=== PATIENT | male | born 1990 | race Caucasian/White ===

== ENCOUNTER 2019-10-17 09:35 | Emergency (ER) | payer OTHER, SELFPAY ==
[2019-10-17] VITALS (7 sets, daily range): BP systolic 120–182; BP diastolic 64–99; PULSE 80–125; RESP 18–22; TEMP 36.9; O2SAT 98–100
--- NOTE | ~2019-10-17 | XR_ITS ---
EXAMINATION: XR chest 2V EXAM DATE: 10/17/2019 10:07 INDICATION: Midsternal chest pain. TECHNIQUE: Frontal and lateral projections of the chest obtained and reviewed. Comparison is made to prior examination from 02/07/2013. FINDINGS: The lungs are clear. There are no pleural effusions. The cardiomediastinal silhouette is within normal limits. There is no pneumothorax suspected. Right clavicular hardware. IMPRESSION: Normal chest x-ray exam. Reviewed, dictated and finalized at location A. IMPRESSION: Normal chest x-ray exam.
--- NOTE | 2019-10-17 09:37 | ECG_ITS ---
Measurements Intervals [place] Rate: 127 P: 73 MD: 166 QRS: 90 QRSD: 106 T: 35 QT: 288 QTc: 419 Interpretive Statements SINUS TACHYCARDIA ABNORMAL ECG Electronically Signed On 10-17-2019 13:23:59 CDT by Serge Barbosa D.O.
[2019-10-17 09:49] LABS: Basophils Absolute Auto 0.1 K/mm3 (0.0-0.1); Basophils Percent Auto 0.7 % (0.2-1.2); Eosinophils Absolute Auto 0.1 K/mm3 (0-0.3); Eosinophils Percent Auto 1.3 % (0-4.4); Hemoglobin 15.8 g/dL (14.0-18.0); Immature Granulocyte Absolute 0.04 K/mm3 (0.00-0.031); Immature Granulocyte Percent A 0.4 % (0-0.5); Lymphocytes Absolute Auto 1.33 K/mm3 (0.9-3.2); Lymphocytes Percent Auto 14.7 % (18.3-44.2); Mean Corpuscular HGB Conc 34.3 g/dl (32-36); Mean Corpuscular Hemoglobin 30.7 pg (26-34); Mean Corpuscular Volume 89.3 fl (80-100); Monocytes Absolute Auto 0.9 K/mm3 (0.1-0.6); Monocytes Percent Auto 9.7 % (2.6-8.5); Neutrophils Absolute Auto 6.6 K/mm3 (1.3-6.7); Neutrophils Percent Auto 73.2 % (45.5-73.1); Platelet Count Result 305 k/mm3 (150-375); Red Blood Count 5.15 M/mm3 (4.6-6.20); Red Cell Distribution Width 12.2 % (11.5-14.5)
[2019-10-17 10:00] LABS: Blood Urea Nitrogen 9 mg/dL (9-20); Calcium 9.5 mg/dL (8.4-10.2); Carbon Dioxide 25 mmol/L (22-30); Chloride 99 mmol/L (98-107); Estimated CRCL calculation 121 ml/min; Estimated Glomerular Filt Rate > 60; Glucose 124 mg/dL (75-110); Potassium 3.6 mmol/L (3.4-5.0); Sodium 137 mmol/L (137-145)
[2019-10-17 10:02] LABS: INR 0.9; Prothrombin Time 12.3 Seconds (11.1-14.7)
[2019-10-17 10:03] LABS: Partial Thromboplastin Time 23.6 SECONDS (22.3-36.8)
[2019-10-17 10:12] LABS: Troponin I < 0.012 ng/mL (0.000-0.034)
--- NOTE | 2019-10-17 10:28 | ED.CHESTPAIN ---
HPI - Chest Pain General Chief Complaint: Chest Pain <Lavon Lorenzo PA-C - Last Filed: 10/17/19 13:48> Stated Complaint: cp, lightheaded <MISSAEL Sanchez Last Filed: 10/17/19 13:48> Time Seen by Provider: 10/17/19 10:14 <MISSAEL Sanchez Last Filed: 10/17/19 13:48> Source: patient <MISSAEL Sanchez Last Filed: 10/17/19 13:48> Mode of arrival: ambulatory <MISSAEL Sanchez Last Filed: 10/17/19 13:48> Limitations: no limitations <MISSAEL Sanchez Last Filed: 10/17/19 13:48> History of Present Illness HPI narrative: Patient is a 28-year-old male who presents to emergency department for evaluation of anxiety nervousness and panic that began this morning noting over the last week he has been having episodes similar has been watching his blood pressures which she states have been elevated over the course of the last week denying any history of hypertension. Patient also notes longstanding history of anxiety and panic attacks but had been doing very well for the last 5 years until the last week. Patient denies any recent illness dyspnea or current chest pain, , patient notes when the episode intensified he had heaviness of the chest. Patient on arrival to emergency department is very anxious and nervous and tremulous. Patient has not taken anything for his symptoms. Patient has not been seen for this complaint. Patient also notes once the symptoms intensify he feels as though he is near syncopal. Patient notes that these episodes do mimic his prior anxiety and panic episodes in the past. Patient denies any suicidal or homicidal ideation or any history of suicidal or homicidal ideation or passive wish. <MISSAEL Sanchez Last Filed: 10/17/19 13:48> Related Data Allergies/Adverse Reactions: Allergies Allergy/AdvReac Type Severity Reaction Status Date / Time No Known Allergies Allergy Verified 10/17/19 09:56 <MISSAEL Sanchez Last Filed: 10/17/19 13:48> Review of Systems Review of Systems: All systems reviewed & are unremarkable except as noted in HPI and below <MISSAEL Sanchez Last Filed: 10/17/19 13:48> [facility] Past Medical History Medical History: Medical History Generalized anxiety disorder with panic attacks <Lavon Lorenzo PA-C - Last Filed: 10/17/19 13:48> Family History Family History: Family History (Updated 10/23/16 @ 15:37 by DOCTOR UNKNOWN) Other Family history of malignant neoplasm Hypertension <Lavon Lorenzo PA-C - Last Filed: 10/17/19 13:48> Social History Social History: Social History Smoking status: Light tobacco smoker Second hand tobacco smoke exposure: No Alcohol intake: current <Lavon Lorenzo PA-C - Last Filed: 10/17/19 13:48> Exam Narrative: Exam Narrative: GENERAL: Well-appearing, well-nourished, and in no acute distress. HEAD: Normocephalic, atraumatic. EYES: PERRLA and EOMI. ENT: Nares clear, no rhinorrhea or epistaxis. Mucous membranes moist. Oropharynx without tonsillar hypertrophy exudate or other lesions. NECK: Supple. No adenopathy or masses. CHEST: Clear to auscultation. No respiratory distress. No wheezes rales or rhonchi HEART: Tachycardic rate and regular rhythm. No murmur heard. Normal peripheral pulses. ABDOMEN: Soft, nontender, nondistended EXTREMITIES: Normal range of motion. No edema. SKIN: Warm, dry, no rash. NEURO: No focal deficits. Alert and oriented x3. PSYCH: Acutely anxious with normal affect <Lavon Lorenzo PA-C - Last Filed: 10/17/19 13:48> Course Course Emergency Course: Patient in the room aware of case findings treatment plan and diagnosis agreeing to follow-up as directed or to return if symptoms worsen or concerns <Lavon Lorenzo PA-C - Last Filed: 10/17/19 13:48> Vital
[2019-10-17 10:40] LABS: D Dimer 0.27 ug/mL (<0.48)
[2019-10-17] MEDS: ASPIRIN 81 MG CHEWABLE TABLET 324 MG PO (10:45)
[2019-10-17] MEDS: FAMOTIDINE 20 MG/2 ML VIAL IV PUSH (10:49)
[2019-10-17] MEDS: SODIUM CHLORIDE 0.9% IV 1,000 ML 999 ML IV CONT (10:50)
[2019-10-17 11:28] LABS: Amphetamine Screen Urine Negative (Negative); Barbiturate Screen Urine Negative (Negative); Benzodiazepines Screen Urine Negative (Negative); Cannabinoid Screen Urine Negative (Negative); Cocaine Screen Urine Negative (Negative); Methadone Screen Urine Negative (Negative); Opiate Screen Urine Negative (Negative); Phencyclidine Screen Urine Negative (Negative)
[2019-10-17 13:18] LABS: Troponin I < 0.012 ng/mL (0.000-0.034)
[2019-10-17 14:12] LABS: Add Urine Microscopic? YES; Appearance Urine Clear (Clear); Bacteria Urine Trace /hpf; Bilirubin Urine Negative (Negative); Blood Urine 1+ (Negative); Color Urine Yellow (Yellow); Glucose Urine UA Negative (Negative); Ketones Urine Trace mg/dL (Negative); Leukocyte Esterase Ur Negative LEU/UL (Negative); Mucus Urine Rare /lpf; Nitrate Urine Negative (Negative); Protein Urine 1+ mg/dL (Negative); RBC Urine 0-2 /hpf (0-2); Specific Grav Ur 1.014 (1.001-1.035); Urobilinogen Urine Negative mg/dL (<2.0); WBC Urine 0-3 /hpf
== END 2019-10-17 14:45 | disposition home or self-care (01) ==
PROVIDERS: Emergency Medicine Emergency Medical Services; Emergency Provider Emergency Medicine; PCP Family Medicine
DX: R07.9 Chest pain, unspecified (principal); F41.1 Generalized anxiety disorder; F17.200 Nicotine dependence, unspecified, uncomplicated
CPT/HCPCS: 36415; 71046; 80048; 80307; 81001; 84443; 84484; 85025; 85380; 85610; 85730; 93005; 96361; 96374; 96375; 96376; 99284; A9270; J2060; J7030

== ENCOUNTER 2020-07-03 14:12 | Outpatient (CLI) | payer OTHER, SELFPAY ==
--- NOTE | ~2020-07-03 | XR_ITS ---
XR forearm LT 2V DATE: 07/03/2020 14:28 INDICATION: Injury, pain TECHNIQUE: AP and lateral views COMPARISON: None FINDINGS: No fracture or dislocation, periosteal reaction or bone destruction. IMPRESSION: Negative Reviewed, dictated and finalized at location A. IMPRESSION: Negative
== END 2020-07-03 14:13 ==
PROVIDERS: Visit Provider Family Medicine
DX: S49.90XA Unspecified injury of shoulder and upper arm, unspecified arm, initial encounter (principal)
CPT/HCPCS: 73090

== ENCOUNTER 2024-03-04 09:17 | Outpatient (CLI) | payer BC, SELFPAY ==
[2024-03-04 09:57] LABS: Basophils Absolute Auto 0.1 K/mm3 (0.0-0.1); Basophils Percent Auto 0.7 % (0.2-1.2); Eosinophils Absolute Auto 0.1 K/mm3 (0-0.3); Eosinophils Percent Auto 0.7 % (0-4.4); Hematocrit 40.3 % (42.0-52.0); Hemoglobin 13.6 g/dL (14.0-18.0); Immature Granulocyte Absolute 0.05 K/mm3 (0.00-0.031); Immature Granulocyte Percent A 0.7 % (0-0.5); Lymphocytes Absolute Auto 0.88 K/mm3 (0.9-3.2); Lymphocytes Percent Auto 12.6 % (18.3-44.2); Mean Corpuscular HGB Conc 33.7 g/dl (32-36); Mean Corpuscular Hemoglobin 32.8 pg (26-34); Mean Corpuscular Volume 97.1 fl (80-100); Mean Platelet Volume 9.3 fl (7.4-10.4); Monocytes Absolute Auto 0.8 K/mm3 (0.1-0.6); Monocytes Percent Auto 10.8 % (2.6-8.5); Neutrophils Absolute Auto 5.2 K/mm3 (1.3-6.7); Neutrophils Percent Auto 74.5 % (45.5-73.1); Platelet Count Result 219 k/mm3 (150-375); Red Blood Count 4.15 M/mm3 (4.6-6.20); Red Cell Distribution Width 11.7 % (11.5-14.5)
[2024-03-04 10:37] LABS: LDL Cholesterol Direct 105 mg/dL
[2024-03-04 13:34] LABS: Alanine Aminotransferase 157 U/L (6-50); Alkaline Phosphatase 106 U/L (38-126); Anion Gap 12 mmol/L (4-12); Aspartate Amino Transferase 241 U/L (17-59); Bilirubin,Total 0.7 mg/dL (0.2-1.3); Blood Urea Nitrogen 8 mg/dL (9-20); Calcium 9.7 mg/dL (8.4-10.2); Carbon Dioxide 28 mmol/L (22-30); Chloride 97 mmol/L (98-107); Cholesterol 236 mg/dL (0-200); Estimated Glomerular Filt Rate > 60; Glucose 114 mg/dL (65-110); Potassium 3.9 mmol/L (3.4-5.0); Sodium 137 mmol/L (137-145); Triglycerides 54 mg/dL (<150)
[2024-03-04 14:13] LABS: Iron 119 ug/dL (49-181)
[2024-03-04 14:22] LABS: Percent Iron Saturation 29 % (20-50)
[2024-03-04 14:33] LABS: Free T4 Free Thyroxine 0.92 ng/mL (0.78-2.19)
[2024-03-04 14:42] LABS: Folic Acid 8.7 ng/mL (2.76->20)
[2024-03-04 17:00] LABS: Vitamin D 25 Hydroxy 39.7 ng/mL
[2024-03-04 17:07] LABS: HDL Direct 114 mg/dL
== END 2024-03-04 09:18 | disposition home or self-care (01) ==
PROVIDERS: PCP Family Medicine; Visit Provider Student in an Organized Health Care Education/Training Program
DX: F41.9 Anxiety disorder, unspecified (principal); I10 Essential (primary) hypertension; R25.1 Tremor, unspecified; R53.83 Other fatigue; E78.2 Mixed hyperlipidemia
CPT/HCPCS: 36415; 80053; 80061; 82306; 82607; 82728; 82746; 83540; 83550; 84439; 84443; 85025

== ENCOUNTER 2024-05-20 07:34 | Outpatient (CLI) | payer BC, SELFPAY ==
--- NOTE | ~2024-05-20 | US_ITS ---
US right upper quadrant INDICATION: Abnormal levels of serum enzymes. PROCEDURE: Realtime right upper abdominal ultrasound. COMPARISON: No prior studies for comparison. FINDINGS: The pancreas is normal without focal mass or pancreatic ductal dilation. Liver is enlarged measuring 18.7 cm. There is diffuse fatty infiltration of the liver. No discrete hepatic masses. Th ere is normal directional flow in the portal vein. The gallbladder is normal without stones, gallbladder wall thickening or pericholecystic fluid. Comm on bile duct measures 4 mm. No sonographic Nuñez's sign. IMPRESSION: 1: Hepatomegaly with diffuse fatty infiltration. Reviewed, dictated and finalized at location A. LINE MAINTENANCE SUPERVISOR
--- OUTSIDE RECORDS SUMMARY | 2024-05-20 07:38 | XMS_ITS | CONTINUITY OF CARE DOCUMENT ---
Author Name sheila sosa Address Unknown Organization [facility] Address [address] [address] [place] [address] Phone [phone] Care Team Providers Care Construction Lineman Name Role Phone Georgi Garcia MD Unavailable [phone] Georgi Garcia MD Unavailable [phone] INSURANCE PROVIDERS Payer name Policy type / Coverage type Geraldine red republican ID SELF PAY [employer] PPO [id number]
--- OUTSIDE RECORDS SUMMARY | 2024-05-20 07:39 | XMS_ITS | Referral Summary ---
Author Organization [facility] Address [address] [place] [address] Care Team Providers Care Mine Car Dispatcher Name Role Phone Judy Jacob MD Primary Care Provider [phone] Encounters Date Type Department Care Team Description 03/09/2024 - 03/10/2024 6:36 AM EPIC ANALYST Emergency [facility] Emergency Department [address] [place] [address] Discharge Disposition: ED Dismiss - Never Arrived from Last 3 Months Allergies No known active allergies Medications ALPRAZolam (XANAX) 0.5 mg tablet Take by mouth 3 (three) times a day as needed NEEDED 08/04/2020 Active venlafaxine XR (EFFEXOR-XR) 75 mg 24 hr capsule Take 75 mg by mouth daily 02/02/2021 Active metoprolol XL (TOPROL-XL) 50 mg extended release tablet 03/21/2021 Acti ve Active Problems Problem Noted Date Diagnosed Date Hypertension 03/09/2024 Assessment & Plan (03/09/2024 12:05 PM EPIC ANALYST): Takes metop 50mg XL at home -restart as able -goal normotension Leg laceration 03/09/2024 Assessment & Plan (03/09/2024 12:07 PM EPIC ANALYST): Patient at a construction site and backed into a concrete saw. 11 cm laceration with pulsatile bleeding. Presented to [facility]. Bleeding managed with pressure dressing and transferred to [facility] De Quervain's disease (radial styloid tenosynovi tis) 02/21/2021 Overview (02/21/2021): Added automatically from request for surgery [id number] Social History Tobacco Use Types Packs/Day Years Used Date Smoking Tobacco: Former Cigarettes Q uit: 11/19/2017 Smokeless Tobacco: Never AUDIT-C Answer Date Recorded Q1: How often do you have a drink containing alc ohol? 2-3 times a week 02/28/2021 Q2: How many drinks containi ng alcohol do you have on a typical day when you are drinking? 3 or 4 02/28/2021 Q3: How often do you have si x or more drinks on one occasion? Less than monthly 02/28/2021 Sex and Gender Information Value Date Recorded Sex Assigned at Not on file Legal Sex Male 2:23 PM EPIC ANALYST Gender Identity Not on file Sexual Orientation Not on file Last Filed Vital Signs Vital Sign Reading Time Taken Comments Blood Pressure 145/85 03/08/2021 12:25 PM EPIC ANALYST Pulse 90 03/08/2021 12:25 PM EPIC ANALYST Temperature 36.7 ??C (98 ??F) 03/08/2021 12:25 PM EPIC ANALYST Respiratory Rate 16 03/08/2021 12:25 PM EPIC ANALYST Oxygen Saturation 96% 03/08/2021 12:25 PM EPIC ANALYST Inhaled Oxygen Concentration - - Weight 88 kg (194 lb 1.6 oz) 03/08/2021 9:51 AM EPIC ANALYST Height 177.8 cm (5' 10 ) 03/08/2021 9:51 AM EPIC ANALYST Body Mass Index 27.85 03/08/2021 9:51 AM EPIC ANALYST Plan of Treatment [place] [address] [facility] [employer] Address: [facility] [id number] [place] [address] [employer] Address: [facility] [id number] [place] [address] Care Teams Mine Car Dispatcher Relationship Specialty Start Date End Date Judy Jacob MD PCP - General 04/13/17
--- OUTSIDE RECORDS SUMMARY | 2024-05-20 07:39 | XMS_ITS | Patient Health Summary ---
Author Organization [facility] Address [address] [place] [address] Care Team Providers Care Deadener Name Role Phone Judy Jacob MD Primary Care Provider [phone] Note from [facility],non-owned Affiliates and Associated Physician Practices is amultiple site organization consisting of ambulatory clinics and hospital sitesin [place], [place], [place] and [place]. This disclosure is being madepursuant to the Care Everywhere program and may not contain all information available regarding this patient. Last updated 18.[facility] Active Problems Problem Noted Date Diagnosed Date Fracture of other specified skull and facial bones, unspecified side, subsequent encounter for fracture with routine healing 09/08/2015 Social History Tobacco Use Types Packs/Day Years Used Date Smoking Tobacco: Every Day Cigarettes Alcohol Use Standard Drinks/Week Comments Yes 0 (1 standard drink = 0.6 oz pur e alcohol) Sex and Gender Information Value Date Recorded Sex Assigned at Not on file Gender Identity Not on file Sexual Orientation Not on file Last Filed Vital Signs Vital Sign Reading Time Taken Comments Blood Pressure 114/64 07/02/2015 10:30 AM CDT Pulse 103 07/02/2015 10:29 AM CDT Temperature 36.6 ??C (97.8 ??F) 07/02/2015 7:27 AM CD T Respiratory Rate 15 07/02/2015 7:27 AM CDT Oxygen Saturation 100% 07/02/2015 10:29 AM CDT Inhaled Oxygen Concentration - - Weight - - Height - - Body Mass Index - - Procedures * BASIC METABOLIC PANEL (CALCIUM TOTAL)(Performed 07/02/2015) * PTT [facility](Performed 07/02/2015) * PT-INR [facility](Performed 07/02/2015) * CBC W AUTO DIFFERENTIAL(Performed 07/02/2015) * CBC W AUTO DIFFERENTIAL(Performed 07/02/2015) Results * PTT [facility] (07/02/2015 7:50 AM CDT) APTT 23.6 23.0 - 38.4 Seconds [facility] Comment:Suggested therapeuti c range for full dose I.V. heparin therapy for venous thromboembolism is 66.0-91.0 seconds. Blood specimen (specimen) BLOOD SPECIMEN / Unknown 07/02/2015 7:50 AM CDT 07/02/2015 7:55 AM CDT Narrative [facility] - 07/02/2015 8:08 AM CDT Is patient on Heparin, Argatroban or Dabigatran?->N Jason Carrillo MD LAB - COAGULATION OR DERABLES Performing Organization Address [facility] Co de Phone Number [address] [phone] * (ABNORMAL) PT-INR U (07/02/2015 7:50 AM CDT) PT 12.0(L) 12.1 - 14.8 Seconds [facility] INR 0.9 See Comment [facility] Comment: Suggested therapeutic range for low-intensity coumadin therapy for venous thromboembolism prophylaxis is an INR of 2.0-3.0. ??For high risk patients (Mitral Valve Prosthesis, Atrial Fibrillation, history of TIA/stroke), suggested prophylactic therapeutic range is an INR of 2.5-3.5. Blood specimen (specimen) BLOOD SPECIMEN / Unknown 07/02/2015 7:50 AM CDT 07/02/2015 7:55 AM CDT Narrative [facility] - 07/02/2015 8:07 AM CDT Is patient on Heparin, Argatroban or Dabigatran?->N Jason Carrillo MD LAB - COAGULATION OR DERABLES Performing Organization Address [facility] Co de Phone Number [address] [phone] * (ABNORMAL) CBC W AUTO DIFFERENTIAL (07/02/2015 7:50 AM CDT) Only the most recent of2 resultswithin the time period is included. WBC 14.4(H) 3.5 - 10.5 10? 3 /uL [facility] RBC 4.71 4.30 - 5.70 10? 6 /uL [facility] Hemoglobin 14.1 13.5 - 17.5 g/dL [facility] Hematocrit 40.8 39.0 - 50.0 % [facility] MCV 86.6 81.0 - 97.0 fL [facility] MCH 29.9 28.0 - 34.0 pg [facility] MCHC 34.6 32.0 - 36.0 g/dL [facility] Platelet Count 260 150 - 400 10? 3 /uL [facility] RDW-SD 39.2 36.0 - 50.0 fL [facility] RDW-CV 12.2 11.2 - 14.8 % [facility] MPV 9.8 9.3 - 12.8 fL [facility] nRBC Absolute 0.00 0 10? 3 /uL [facility] nRBC Auto 0.0 0 /100 WBC [facility] Neutrophils % 78.7(H) 35.0 - 70.0 % [facility] Lymphocytes % 13.5(L) 19.7 - 55.1 % [facility] Monocytes % 7.6 3.0 - 15.0 % [facility] Eosinophils % 0.1 0.0 - 6.0 % [facility] Basophil % 0.1 0.0 - 1.5 % [facility] Neutrophils Absolute 11.4(H) 1.6 - 7.0 10? 3 /uL [facility] Lymphocyte Absolute 1.9 0.8 - 2.9 10? 3 /uL [facility] Monocytes Absolute 1.09(H) 0.14 - 0.66 10? 3 /uL [facility] Eosinophils Absolute 0.02 0.00 - 0.22 10? 3 /uL [facility] Basophils Absolute 0.02 0.00 - 0.06 10? 3 /uL [facility] Immature Granulocytes % 0.3 0.0 - 1.0 % [facility] Blood specimen (specimen) BLOOD SPECIMEN / Unknown 07/02/2015 7:50 AM CDT 07/02/2015 7:55 AM CDT Jason Carrillo MD LAB - HEMATOLOGY ORD ALEXIBLES [facility] [address] [phone] * BASIC METABOLIC PANEL (CALCIUM TOTAL) (07/02/2015 7:50 AM CDT) BUN 13 7 - 26 mg/dL [facility] Creatinine 0.7 0.6 - 1.2 mg/dL [facility] Sodium 140 136 - 145 mmol/L [facility] Potassium 4.0 3.5 - 4.5 mmol/L [facility] Chloride 105 98 - 107 mmol/L [facility] CO2 25 22 - 29 mmol/L [facility] Glucose 114 70 - 115 mg/dL [facility] Calcium 8.9 8.4 - 10.2 mg/dL [facility] Anion Gap 14 8 - 18 [facility] BUN/Creatinine Ratio 19 7 - 23 [facility] Osmolality Calculated 276 270 - 300 mOsm/kg [facility] eGFR >60 >60 mL/min/1.7 3 m2 [facility] Blood specimen (specimen) BLOOD SPECIMEN / Unknown 07/02/2015 7:50 AM CDT 07/02/2015 7:55 AM CDT Jason Carrillo MD LAB - CHEMISTRY KAREEM FREEMAN Performing Organization Address City/[facility]/ZIP Co de Phone Number [address] [phone] Care Teams Deadener Relationship Specialty Start Date End Date Judy Jacob MD [address] [place] [address] PCP - General 07/04/15
--- OUTSIDE RECORDS SUMMARY | 2024-05-20 07:39 | XMS_ITS | Data Portability ---
Author Organization [place] [facility] [email or web address], Main Office Address [address] [place] [address] Care Team Providers Care Hotel Sales Manager Name Role Phone KUSHAL HORN Airplane Charter Clerk [phone] Assessment Encounter Date Assessment Date Assessment LastModified by Organization Details LastModified Time 03/22/2024 03/22/2024 33-year-old patient presents today for 1st postop follow-up after right leg I and D and wound closure on 03/09/[address] Valadez. He rates his pain 5/10. He still has has a couple hydrocodone left and is also been taking the muscle relaxant and the antibiotic. He has 2 more days of the antibiotic. He denies any issues with the incision. 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 Review of systems per patient questionnaire Physical exam: Dressing was removed. Incision is clean dry and intact without signs and symptoms of infection. Sutures removed, antibiotic ointment and dressing placed. Tenderness with palpitation around incision site. Able to flex and extend ankle with pain. Slightly antalgic gait. Sensation intact throughout. We discussed incisional care and when to call the office if there are changes. We will also order physical therapy to help with his gait and muscle pain. For pain we recommend alternating Tylenol and ibuprofen as needed. If he is still experiencing pain we can order meloxicam. For work we will keep him light duty, no heavy lifting, pushing, pulling, squatting. We will write for him to start back at work on Friday of next week to ensure incision is well healed. We will see him back in 3 weeks to check his progress. Not available 03/22/2024 12:11:48 03/26/2024 03/26/2024 33-year-old patient presents today for postop follow-up after right leg I and D and wound closure on 03/09/[address] Valadez. He was concerned for infection so returned today for recheck. He has been taking keflex and finished the course on Friday. He states there has been drainage on the dressing and the leg began to swell and become numb. The swelling and numbness has resolved. He is taking tylenol and ibuprofen as needed. Physical exam: Dressing was removed. Incision is clean dry and intact. Redness around incision but it is unchanged from his appointment on Friday. Tenderness with palpitation around incision site. No drainage expressed with pressure. No edema. Sensation intact throughout. We will have him continue to monitor the incision. If any changes occur like purulent drainage, opening of the incision, increased pain/swelling/re dness, we instructed him to call the office and we will see him back. Otherwise we will see him back in 2 weeks. For swelling he can ice and elevate. He can continue NSAIDs and tylenol as needed. Not available 03/26/2024 10:54:53 04/09/2024 04/09/2024 33-year-old patient presents today for postop follow-up after right leg I and D and wound closure on 03/09/[address] Valadez. He states he has been doing well, 2/10 pain. He is taking tylenol and ibuprofen as needed. it took a while for physical therapy to be approved so he had his 1st session this Friday. He states it went well but he is still having tenderness over the incision and tightness around the leg. States that the top portion of the incision opened a bit but it has since closed and has minimal drainage. Physical exam: Dressing was removed. Incision is clean dry and intact. Redness around incision but improving. Tenderness with palpitation around incision site. No drainage expressed with pressure. No edema. Sensation intact throughout. We will have him continue to monitor the incision. If any changes occur like purulent drainage, opening of the incision, increased pain/swelling/re dness, we instructed him to call the office and we will see him back.He can continue with dressings and neosporn. We will see him back in 2-3 weeks. For swelling he can ice and elevate. He can continue NSAIDs and tylenol as needed. We will continue with same work restrictions of light duty, no heavy lifting, pushing, pulling, squatting Not available 04/09/2024 11:37:34 04/28/2024 04/28/2024 33-year-old patient presents today for postop follow-up after right leg I and D and wound closure on 03/09/[address] Valadez. He states he has been doing well, 2/10 pain. He is taking tylenol and ibuprofen as needed. He has been attending physical therapy. They have been working on strength and gait training. He states that the foot has started to turn down attendant when he steps and he still has a limp, which is causing his hip and back to hurt. He feels the calf is still weak. Physical exam: Antalgic gait. Incision is clean dry and intact, still some scabbing not completely healed. Minimal redness around incision. Tenderness with palpitation around incision site. No drainage expressed with pressure. Edema around ankle. Sensation intact throughout. We will have him continue to monitor the incision. If any changes occur like purulent drainage, opening of the incision, increased pain/swelling/re dness, we instructed him to call the office and we will see him back. He can continue with dressings and neosporn as needed. We would like him to continue with PT to increase strength and get back to a normal gait. We will see him back in 4 weeks. For swelling he can ice and elevate. He can continue NSAIDs and tylenol as needed. We will continue with same work restrictions of light duty, no heavy lifting, pushing, pulling, squatting. Not available 04/28/2024 10:04:04 Plan of Treatment Reminders Order Date Submit Date Provider Last Modified By Organization Details Last Modified Time Details Appointments Any 5 2024 08:30A Nakul Valadez MD Not available Not available Not available Lab None recorded. Referral physical therapist referral - Please contact pt to schedule apt. Thanks 2023 024 [facility] [place] [facility], [address], [place], [address], 04/05/2024 11:17:45 Procedures None recorded. Surgeries None recorded. Imaging None recorded. Medication Orders None recorded. Patient TargetsNo targets recorded. Patient InstructionsNo instructions recorded. Reason for Referral Physical Therapist Referral for Pain in right lower limb R leg Please contact pt to schedule apt. Thanks Referring Physician: Isaura Carroll, Orthopedic Surgery, Encounter Date: 03/22/2024 Problems Name Problem SNOMED Code Status Onset Date Resolution Date Notes Provider Name and Address Organization Details Recorded Time Laceration of lower leg 985646689 Active 024 Ja Valadez MD [address] [facility], [facility] [address], [place], [address], [facility] [employer] [facility] 4 10:38:30 Pain in right lower limb 706856514 Active 024 Kasey Fall , ATC L null, [place] [facility] [employer] 4 12:01:38 Laceration of lower leg 160418545 Active 025 Sol Rico RABBIT FANCIER null, [place] [facility] [employer] 5 09:40:01 Problem Notes None recorded. Medical Equipment None Reported. Allergies No known drug allergies Medications Name Sig Start Date Stop Date Status Note LastModified by Organization Details LastModified Time cyclobenzap rine 10 mg tablet TAKE 1 TABLET BY MOUTH THREE TIMES DAILY NEEDED active Not Available Not Available No t Available acetaminoph en 325 mg tablet 03/22 completed Not Available Not Available Not Available venlafaxine ER 75 mg capsule,ext ended release 24 hr TAKE 3 CAPSULES BY MOUTH DAILY active Not Available Not Available No t Available hydrocodone 5 mg-acetamin ophen 325 mg tablet TAKE 1 TABLET BY MOUTH EVERY 6 HOURS active Not Available Not Available No t Available meloxicam 15 mg tablet TAKE 1 TABLET BY MOUTH EVERY DAY active Not Available Not Available No t Available lisinopril 20 mg tablet TAKE 1 TABLET BY MOUTH DAILY active Not Available Not Available No t Available metoprolol succinate ER 100 mg tablet,exte nded release 24 hr TAKE 1 TABLET BY MOUTH DAILY active Not Available Not Available No t Available venlafaxine ER 150 mg capsule,ext ended release 24 hr TAKE 1 CAPSULE BY MOUTH DAILY active Not Available Not Available No t Available oxycodone-a cetaminophe n 5 mg-325 mg tablet active Not Available Not Available No t Available alprazolam 0.5 mg tablet TAKE 1 TABLET BY MOUTH THREE TIMES DAILY NEEDED FOR ANXIETY active Not Available Not Available No t Available cephalexin 500 mg capsule TAKE 1 CAPSULE BY MOUTH TWICE DAILY 04/27 completed Not Available Not Available Not Available lisinopril 10 mg tablet TAKE 1 TABLET BY MOUTH DAILY active Not Available Not Available No t Available lisinopril 40 mg tablet active Not Available Not Available Not Available Vitals Date Recorded Body height Body mass index (BMI) Body weight Provider Name and Address Organization Details Last Updated DateTime 03/22/2024 177.8 cm 27.3 kg/m2 42980.55 g Maude Goldsmith [facility] [employer] [facility] 03/22/2024 11:41:14 Date Recorded Body height Body mass index (BMI) Body weight Provider Name and Address Organization Details Last Updated DateTime 03/26/2024 177.8 cm 27.3 kg/m2 54197.55 g Sol Rico [facility] [employer] [facility] 03/26/2024 10:06:16 Date Recorded Body height Provider Name an d Address Organization Details Last Updated DateTime 04/09/2024 177.8 cm Maude Goldsmith [facility] [employer] [facility] 04/09/2024 10:30:17 Date Recorded Body height Body mass index (BMI) Body weight Provider Name and Address Organization Details Last Updated DateTime 04/28/2024 177.8 cm 27.3 kg/m2 57042.55 g Sol Rico RABBIT [facility] [employer] [facility] 04/28/2024 09:39:17 Social History Question Answer Notes LastModified by Organizat ion Details LastModified Time What Is Your Level Of Alcohol Consumption? Moderate [email or web address] Information not available 03/22/2024 Do You Or Have You Ever Used E-cigarettes Or Vape? Current User Of Electronic Cigarettes [email or web address] Information not available 03/22/2024 What Was The Date Of Your Most Recent Tobacco Screening? 03/22/2024 [email or web address] Information not available 03/22/2024 Do You Or Have You Ever Used Any Other Forms Of Tobacco Or Nicotine? Yes [email or web address] Information not available 03/22/2024 Sex: Unknown Functional Status None recorded. Mental Status None recorded. Family History Relationship Description Onset Age of this Age Resolved Age Notes LastModified by Organization Details LastModified Time Father Hypertensive disorder [email or web address] Not available 2023 11:42:26 Medical History No medical history recorded. Past Encounters Encounter ID Performer Location Encounter Start Date Encounter Closed Date Diagnosis/Indication Diagnosis SNOMED-CT Code Diagnosis ICD10 Code Diagnosis Note [id number] Isaura Carroll, HAIR CLIPPER POWER [facility] [address] [facility] [place] [address] 03/22/2024 11:25:40 03/22/2024 12:07:17 Pain in right lower limb 889135142 M79.298 [id number] Isaura Carroll, HAIR CLIPPER POWER [facility] [place] [address] [place] [address] 03/26/2024 10:04:45 03/26/2024 10:17:11 Laceration of lower leg 913416675 S81.819A [id number] Isaura Carroll, HAIR CLIPPER POWER [facility] [place] [address] [place] [address] 04/09/2024 10:29:28 04/09/2024 10:54:19 Laceration of lower leg 218688967 S81.819A Pain in ri ght lower limb 360724143 M79.547 [id number] Isaura Carroll, HAIR CLIPPER POWER [facility] [address] [place] [address] 04/28/2024 09:36:39 04/28/2024 10:09:23 Laceration of lower leg 148270479 S81.819D Pain in ri ght lower limb 190035132 M79.604 Health Concerns Section Related Observation LastModified by Organization Detai ls LastModified Time None Recorded Concern Status LastModified by Organization Details LastModified Time None Recorded Advance Directives Directive None Recorded Payers Encounter Date Sequence Insurance Name Policy Number Policy Vicente Covered Member ID Vicente Member ID Guarantor Name 03/22/2024 1 [place] [id number] Amando Green [id number] Amando Peter 03/26/2024 TRAVELERS [id number] [facility] 04/09/2024 TRAVELERS [id number] [facility] 04/28/2024 TRAVELERS [id number] [facility] Construction Amando Green
--- OUTSIDE RECORDS SUMMARY | 2024-05-20 07:39 | XMS_ITS | Clinical Summary ---
Author Organization [facility] Address [address] [place] [address] Care Team Providers Care Shipping And Receiving Clerk Name Role Phone Judy Jacob MD Primary Care Provider [phone] Source Comments [facility],non-owned Affiliates and Associated Physician Practices is amultiple site organization consisting of ambulatory clinics and hospital sitesin [place], [place], [place] and [place]. This disclosure is being madepursuant to the Care Everywhere program and may not contain all information available regarding this patient. Last updated 18.[facility] Active Problems Problem Noted Date Diagnosed Date Fracture of other specified skull and facial bones, unspecified side, subsequent encounter for fracture with routine healing 09/08/2015 Family History Medical History Relation Name Comments None Known Father None Known Mother Relation Name Status Comments Father Mother Social History Tobacco Use Types Packs/Day Years [...] - - Body Mass Index - - Plan of Treatment Health Maintenance Due Date Last Done Comments HIV SCREENING 11/28/2003 HEPATITIS C SCREENING 11/23/2006 DTAP/TDAP/TD VACCINES (1 - Tdap) 11/28/2007 HEPATITIS B VACCINE (1 of 3 - 19+ 3-dose series) 11/28/2007 PNEUMOCOCCAL VACCINE (1 of 2 - PCV) 11/28/2007 COVID-19 VACCINE (1 - 2023-2 5 season) 2023 INFLUENZA VACCINE (#1) 2023 DEPRESSION SCREENING 04/21/2024 ZOSTER VACCINE (1 of 2) 2038 HIB VACCINE Aged Out No longer eligi ble based on patient's age to complete this topic HPV VACCINE Aged Out No longer eligi ble based on patient's age to complete this topic MENINGOCOCCAL (Group B) VACCINE Aged Out No longer eligible based on patient's age to complete this topic MENINGOCOCCAL VACCINE Aged Out No john pippa eligible based on patient's age to complete this topic Care Teams Shipping And Receiving Clerk Relationship Specialty Start Date End Date Judy Jacob MD [address] [place] [address] PCP - General 07/04/15
--- OUTSIDE RECORDS SUMMARY | 2024-05-20 07:39 | XMS_ITS | Clinical Summary ---
Author Organization [facility] Address [address] [place] [address] Care Team Providers Care Field Service Consultant Name Role Phone Judy Jacob MD Primary Care Provider [phone] Allergies No known active allergies Medications ALPRAZolam [...] 03/09/2024 Assessment & Plan (03/09/2024 12:05 PM DRAFTER CIVIL (CAD)): Takes metop 50mg XL at home -restart as able -goal normotension Leg laceration 03/09/2024 Assessment & Plan (03/09/2024 12:07 PM DRAFTER CIVIL (CAD)): Patient at a construction site and backed into a concrete saw. 11 cm laceration with pulsatile bleeding. Presented to [facility]. Bleeding managed with pressure dressing and transferred to [facility] De Quervain's disease (radial styloid tenosynovi tis) 02/21/2021 Overview (02/21/2021): Added automatically from request for surgery [id number] Encounters Date Type Department Care Team Description 03/09/2024 - 03/10/2024 6:36 AM DRAFTER CIVIL (CAD) Emergency [facility] Emergency Department [address] [place] [address] Discharge Disposition: ED Dismiss - Never Arrived from Last 3 Months Surgical History Surgery Date Site/Laterality Comments SHOULDER SURGERY with hardware NOSE SURGERY PILONIDAL CYSTECTOMY x3 WISDOM TOOTH EXTRACTION 04/21/2003 - 04/20/2004 DE QUERVAIN'S RELEASE Left Medical History Medical History Date Comments Anxiety GERD (gastroesophageal reflux disease) Anxiety Family History Medical History Relation Name Comments Gout Father Relation Name Status Comments Father Social History Tobacco Use Types Packs/Day Years [...] on file Legal Sex Male 2:23 PM DRAFTER CIVIL (CAD) Gender Identity Not on file Sexual Orientation Not on file Obstetrics History Last Filed Vital Signs Vital Sign Reading Time Taken Comments Blood Pressure 145/85 03/08/2021 12:25 PM DRAFTER CIVIL (CAD) Pulse 90 03/08/2021 12:25 PM DRAFTER CIVIL (CAD) Temperature 36.7 ??C (98 ??F) 03/08/2021 12:25 PM DRAFTER CIVIL (CAD) Respiratory Rate 16 03/08/2021 12:25 PM DRAFTER CIVIL (CAD) Oxygen Saturation 96% 03/08/2021 12:25 PM DRAFTER CIVIL (CAD) Inhaled Oxygen Concentration - - Weight 88 kg (194 lb 1.6 oz) 03/08/2021 9:51 AM DRAFTER CIVIL (CAD) Height 177.8 cm (5' 10 ) 03/08/2021 9:51 AM DRAFTER CIVIL (CAD) Body Mass Index 27.85 03/08/2021 9:51 AM DRAFTER CIVIL (CAD) Plan of Treatment Not on file Insurance [employer] Address: [facility] [address] [place] [address] [employer] Address: [facility] [address] [place] [address] Care Teams Field Service Consultant Relationship Specialty Start Date End Date Judy Jacob MD PCP - General 04/13/17
--- OUTSIDE RECORDS SUMMARY | 2024-05-20 07:39 | XMS_ITS | Referral Summary ---
Author Organization [facility] Address [address] [place] [address] Care Team Providers Care Burr Grinder Name Role Phone Judy Jacob MD Primary Care Provider [phone] Source Comments [facility],non-owned Affiliates and Associated Physician Practices is amultiple site organization consisting of ambulatory clinics and hospital sitesin [place], [place], [place] and [place]. This disclosure is being madepursuant to the Care Everywhere program and may not contain all information available regarding this patient. Last updated 18.[facility] Active Problems Problem Noted Date Diagnosed Date [...] Mass Index - - Plan of Treatment Not on file Care Teams Burr Grinder Relationship Specialty Start Date End Date Judy Jacob MD [address] [place] [address] PCP - General 07/04/15
== END 2024-05-20 07:35 | disposition home or self-care (01) ==
PROVIDERS: PCP Family Medicine; Visit Provider Student in an Organized Health Care Education/Training Program
DX: R74.8 Abnormal levels of other serum enzymes (principal); K76.0 Fatty (change of) liver, not elsewhere classified
CPT/HCPCS: 76705

== ENCOUNTER 2024-12-17 14:06 | Emergency (ER) | payer BC, SELFPAY ==
[2024-12-17] VITALS (21 sets, daily range): BP systolic 131–152; BP diastolic 71–94; PULSE 92–126; RESP 13–31; TEMP 36.3–36.9; O2SAT 99–100
--- NOTE | ~2024-12-17 | CT_ITS ---
EXAMINATION: CTA BRAIN/CAROTID DATE: 12/17/2024 17:09 INDICATION: Altered mental status TECHNIQUE: Computed tomographic angiography (CTA) of the head and neck was performed with 100 mL Omnipaque-350 intravenous contrast. Multiplanar reconstructions and maximum intensity projection 3D-reconstructions of the carotid arteries and of the intracranial arteries were created by the technologist on a separate workstation. Precontrast CT of the head was also obtained. Automated exposure control and iterative reconstruction technique were employed.The dose-length product was 1767.41 mGy-cm. COMPARISON: 07/02/2015 FINDINGS: Head: No acute intracranial hemorrhage, acute infarction or abnormal extra axial fluid collection. Ventricles are normal and symmetric. No mass/mass effect. No abnormally enhancing brain lesions on the postcontrast imaging. Chronic blowout fracture of the medial wall of the left orbit. The orbits, paranasal sinuses and mastoid air cells are normal. Intracranial arteries The intracranial vertebral arteries are codominant. There is no hemodynamically significant stenosis in the vertebral, basilar and internal carotid arteries. The basilar artery is relatively small with diminutive patent bilateral P1 segments. The majority of flow to the bilateral posterior cerebral arteries appear to be supplied by the internal carotid arteries via larger caliber patent bilateral posterior communicating arteries. Both A1 segments are patent. There is also a patent anterior communicating artery. There are no aneurysms identified. Cerebral arterial arborization appears symmetric. Carotid arteries: The aortic arch and the great vessels arising from the arch are normal in caliber with no dissection or hemodynamically significant stenosis. There is no evident atherosclerotic plaque with 0% stenosis of the right left carotid bulbs relative to normal distal artery lumen diameter (NASCET criteria). Right vertebral artery is mildly dominant. No evident hemodynamically significant stenosis along the extracranial bilateral vertebral arteries.Visualized upper lungs are clear. Mild upper thoracic spondylosis. IMPRESSION: 1. No evident atherosclerotic plaque with 0% stenosis of the right carotid bulb relative to normal distal artery lumen diameter (NASCET criteria). 2. No acute intracranial process or abnormally enhancing brain lesions. 3. Unremarkable cerebral CT angiogram with no hemodynamically significant stenosis, thrombosis or aneurysm. Reviewed, dictated and finalized at location A. IMPRESSION: 1. No evident atherosclerotic plaque with 0% stenosis of the right carotid bulb relative to normal distal artery lumen diameter (NASCET criteria). 2. No acute intracranial process or abnormally enhancing brain lesions. 3. Unremarkable cerebral CT angiogram with no hemodynamically significant steno sis, thrombosis or aneurysm.
--- OUTSIDE RECORDS SUMMARY | 2024-12-17 14:08 | XMS_ITS | Clinical Summary ---
Author Organization [facility] Address [address] [place] [address] Care Team Providers Care Commander Internal Affairs Name Role Phone Judy Jacob MD Primary Care Provider [phone] Allergies No known active allergies Medications ALPRAZolam [...] 03/09/2024 Assessment & Plan (03/09/2024 12:05 PM RUN LEAD): Takes metop 50mg XL at home -restart as able -goal normotension Leg laceration 03/09/2024 Assessment & Plan (03/09/2024 12:07 PM RUN LEAD): Patient at a construction site and backed into a concrete saw. 11 cm laceration with pulsatile bleeding. Presented to [place] [facility]. Bleeding managed with pressure dressing and transferred to [facility] De Quervain's disease (radial styloid tenosynovi tis) 02/21/2021 Overview (02/21/2021): Added automatically from request for surgery [id number] Surgical History Surgery Date Site/Laterality Comments SHOULDER [...] on file Legal Sex Male 2:23 PM RUN LEAD Gender Identity Not on file Sexual Orientation Not on file Obstetrics History Last Filed Vital Signs Vital Sign Reading Time Taken Comments Blood Pressure 145/85 03/08/2021 12:25 PM RUN LEAD Pulse 90 03/08/2021 12:25 PM RUN LEAD Temperature 36.7 C (98 F) 03/08/2021 12:25 PM RUN LEAD Respiratory Rate 16 03/08/2021 12:25 PM RUN LEAD Oxygen Saturation 96% 03/08/2021 12:25 PM RUN LEAD Inhaled Oxygen Concentration - - Weight 88 kg (194 lb 1.6 oz) 03/08/2021 9:51 AM RUN LEAD Height 177.8 cm (5' 10) 03/08/2021 9:51 AM RUN LEAD Body Mass Index 27.85 03/08/2021 9:51 AM RUN LEAD Plan of Treatment [place] [address] [employer] Address: [facility] [id number] [address] [employer] Address: [facility] [id number] [place] [address] Care Teams Commander Internal Affairs Relationship Specialty Start Date End Date Judy Jacob MD PCP - General 04/13/17
--- OUTSIDE RECORDS SUMMARY | 2024-12-17 15:24 | XMS_ITS | Clinical Summary ---
Author Organization [facility] Address [address] [place] [address] Care Team Providers Care Iron Plastic Bullet Maker Name Role Phone Judy Jacob MD Primary Care Provider [phone] Source Comments [facility],non-owned Affiliates and Associated Physician Practices is amultiple site organization consisting of ambulatory clinics and hospital sitesin [place], [place], [place] and [place]. This disclosure is being madepursuant to the Care Everywhere program and may not contain all information available regarding this patient. Last updated 18.[facility] Active Problems Problem Noted Date Diagnosed Date [...] at Not on file Legal Sex Male 5:56 PM HYBRID POWERTRAIN DEVELOPMENT ENGINEER Gender Identity Not on file Sexual Orientation Not on file Last Filed Vital Signs Vital Sign Reading Time Taken Comments Blood Pressure 114/64 07/02/2015 10:30 AM CDT Pulse 103 07/02/2015 10:29 AM CDT Temperature 36.6 C (97.8 F) 07/02/2015 7:27 AM CDT Respiratory Rate 15 07/02/2015 7:27 AM CDT [...] of 3 - 19+ 3-dose series) 11/28/2007 HPV VACCINE (1 - 3-dose SCDM series) 11/28/2015 COVID-19 VACCINE (1 - 2023-2 5 season) 2023 DEPRESSION SCREENING 04/21/2024 INFLUENZA VACCINE (#1) 2024 ZOSTER VACCINE (1 of 2) 2038 HIB VACCINE Aged Out No longer eligi ble based on patient's age to complete this topic MENINGOCOCCAL (Group B) VACC INE SHARED DECISION-MAKING Aged Out No longer eligibl e based on patient's age to complete this topic MENINGOCOCCAL GROUPS A/C/Y/W VACCINE Aged Out No longer eligible b ased on patient's age to complete this topic PNEUMOCOCCAL VACCINE Aged Out No long er eligible based on patient's age to complete this topic Care Teams Iron Plastic Bullet Maker Relationship Specialty Start Date End Date Judy Jacob MD [address] [place] [address] PCP - General 07/04/15
--- OUTSIDE RECORDS SUMMARY | 2024-12-17 15:24 | XMS_ITS | Clinical Summary ---
Author Organization [facility] Address [address] [place] [address] Care Team Providers Care Telephone Maintainer Name Role Phone Judy Jacob MD Primary Care Provider [phone] Allergies No known active allergies Medications ALPRAZolam [...] 03/09/2024 Assessment & Plan (03/09/2024 12:05 PM MARKET INVESTIGATOR): Takes metop 50mg XL at home -restart as able -goal normotension Leg laceration 03/09/2024 Assessment & Plan (03/09/2024 12:07 PM MARKET INVESTIGATOR): Patient at a construction site and backed into a concrete saw. 11 cm laceration with pulsatile bleeding. Presented to [facility]. Bleeding managed with pressure dressing and transferred to [facility] De Quervain's disease (radial styloid tenosynovi tis) 02/21/2021 Overview (02/21/2021): Added automatically from request for surgery [id number] Surgical History Surgery Date Site/Laterality Comments SHOULDER [...] on file Legal Sex Male 2:23 PM MARKET INVESTIGATOR Gender Identity Not on file Sexual Orientation Not on file Obstetrics History Last Filed Vital Signs Vital Sign Reading Time Taken Comments Blood Pressure 145/85 03/08/2021 12:25 PM MARKET INVESTIGATOR Pulse 90 03/08/2021 12:25 PM MARKET INVESTIGATOR Temperature 36.7 C (98 F) 03/08/2021 12:25 PM MARKET INVESTIGATOR Respiratory Rate 16 03/08/2021 12:25 PM MARKET INVESTIGATOR Oxygen Saturation 96% 03/08/2021 12:25 PM MARKET INVESTIGATOR Inhaled Oxygen Concentration - - Weight 88 kg (194 lb 1.6 oz) 03/08/2021 9:51 AM MARKET INVESTIGATOR Height 177.8 cm (5' 10) 03/08/2021 9:51 AM MARKET INVESTIGATOR Body Mass Index 27.85 03/08/2021 9:51 AM MARKET INVESTIGATOR Plan of Treatment [place] [address] [employer] Address: [facility] [id number] [phone] [employer] Address: [facility] [id number] [place] [address] Care Teams Telephone Maintainer Relationship Specialty Start Date End Date Judy Jacob MD PCP - General 04/13/17
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
[2024-12-17 16:10] LABS: Hematocrit 40.5 % (42.0-52.0); Hemoglobin 13.8 g/dL (14.0-18.0); Immature Granulocyte Percent A 0.2 % (0-0.5); Lymphocytes Absolute Auto 1.30 K/mm3 (0.9-3.2); Mean Corpuscular HGB Conc 34.1 g/dl (32-36); Mean Corpuscular Hemoglobin 32.2 pg (26-34); Mean Corpuscular Volume 94.4 fl (80-100); Nucleated Red Blood Cells Absolute Auto 0.000 K/mm3 (0.0-0.012); Nucleated Red Blood Cells Perc 0.0 % (0.0-0.2); Platelet Count Result 233 k/mm3 (150-375); Red Blood Count 4.29 M/mm3 (4.6-6.20); White Blood Count 4.5 K/mm3 (4.5-10.0)
[2024-12-17 16:20] LABS: Add Urine Microscopic? YES; Alanine Aminotransferase 117 U/L (6-50); Albumin Level 4.8 g/dL (3.5-5.1); Alkaline Phosphatase 115 U/L (38-126); Anion Gap 15 mmol/L (4-12); Appearance Urine Cloudy (Clear); Aspartate Amino Transferase 179 U/L (17-59); Bilirubin,Total 0.5 mg/dL (0.2-1.3); Blood Urea Nitrogen 2 mg/dL (9-20); Calcium 9.4 mg/dL (8.4-10.2); Carbon Dioxide 28 mmol/L (22-30); Chloride 95 mmol/L (98-107); Estimated CRCL calculation 154 ml/min; Estimated Glomerular Filt Rate > 60; Glucose 108 mg/dL (65-110); Glucose Urine UA Negative (Negative); Leukocyte Esterase Ur Negative LEU/UL (Negative); Need Manual Microscopic Reviewed; Nitrate Urine Negative (Negative); Non Pathogenic Casts 0-2; Potassium 4.2 mmol/L (3.4-5.0); Sodium 138 mmol/L (137-145); Specific Grav Ur 1.004 (1.001-1.035); Total Protein 8.3 g/dL (6.3-8.2)
[2024-12-17 16:27] LABS: INR 1.0; Prothrombin Time 13.4 Seconds (11.1-14.7)
[2024-12-17] MEDS: THIAMINE HCL 200 MG/2 ML VIAL 100 MG IV PUSH (16:27)
[2024-12-17 16:28] LABS: Partial Thromboplastin Time 28.9 Seconds (22.3-36.8)
[2024-12-17] MEDS: LACTATED RINGERS 1,000 ML 999 ML IV CONT (16:31)
[2024-12-17 16:37] LABS: Cannabinoid Screen Urine Negative (Negative)
[2024-12-17 19:10] LABS: Vitamin B12 525.0 pg/mL (239-931)
== END 2024-12-17 19:11 | disposition home or self-care (01) ==
PROVIDERS: Emergency Provider Emergency Medicine; PCP Family Medicine
DX: F41.9 Anxiety disorder, unspecified (principal); F32.A Depression, unspecified; F10.90 Alcohol use, unspecified, uncomplicated; Y90.8 Blood alcohol level of 240 mg/100 ml or more; I10 Essential (primary) hypertension; F17.290 Nicotine dependence, other tobacco product, uncomplicated; Z87.820 Personal history of traumatic brain injury; Z79.899 Other long term (current) drug therapy
CPT/HCPCS: 36415; 70496; 70498; 80053; 80307; 81001; 82077; 82607; 82746; 82948; 85025; 85610; 85730; 96361; 96374; 99284; J3411; J7120; Q9967